=== PATIENT | male | born 1990 | race Caucasian/White ===

== ENCOUNTER 2016-08-24 08:18 | Emergency (ER) | payer OTHER ==
[~2016-08-24 08:18] MED LIST: LEXA1TAB PO; TRAZ50TA4 PO
[2016-08-24] MEDS ORDERED: BENT20TA PO (08:45)
== END 2016-08-24 09:15 | disposition home or self-care (01) ==
LOC: M ED 08:59
DX: K58.0 Irritable bowel syndrome with diarrhea (principal)

== ENCOUNTER → 2016-08-29 | Outpatient (CLI) | payer OTHER ==
[~2016-08-29] MED LIST changes: +BENT20TA PO
--- NOTE | 2016-08-29 13:03 | REP ---
Clinical: Pain . Technique: Internal rotation, external rotation, and Y view right shoulder . Findings: No acute fracture or dislocation. The acromioclavicular and glenohumeral joints are intact. No periarticular calcifications or degenerative changes are appreciated. Sub acromial space is normal. Surrounding soft tissues are unremarkable. Impression: Normal right shoulder radiographs. Signed by Angel Luis May MD 08/29/2016 12:56 P
== END ==
LOC: M RAD 12:33
PROVIDERS: ATTEND Physician Assistant
DX: M25.519 Pain in unspecified shoulder (principal)

== ENCOUNTER → 2017-05-24 | Outpatient (REF) | payer OTHER ==
[2017-05-24 15:26] LABS: HEPATITIS B SURFACE ANTIBODY POSITIVE (POSITIVE)
[2017-05-24 15:37] LABS: HEPATITIS B SURFACE ANTIGEN NEGATIVE (NEGATIVE)
[2017-05-24 16:05] LABS: HEPATITIS C VIRUS ABY INDEX 0.1 INDEX (<0.8)
[2017-05-24 16:05] LABS: HIV 1&2 SCREEN CENTAUR NEGATIVE (NEGATIVE)
== END ==
LOC: M LAB REF 13:53
DX: D72.820 Lymphocytosis (symptomatic) (principal)

== ENCOUNTER 2017-08-20 08:04 | Emergency (ER) | payer OTHER ==
[2017-08-20] MEDS: NS 1,000 ML IV (09:24)
[2017-08-20] MEDS: ONDANSETRON 4MG/2ML VIAL (J2405) IV ×2 (09:24→12:00)
[2017-08-20] MEDS: DICYCLOMINE INJ 20MG/2ML (J0500) IM (09:25)
[2017-08-20] MEDS: KETOROLAC 30 MG/ML VIAL (J1885) IV (09:25)
[2017-08-20] MEDS: GASTROGRAFIN SOLUTION 30ML PO ×2 (09:26→10:00)
[2017-08-20 09:34] LABS: BASO % 0.3 % (0.0-1.0); EOS # 0.1 10^3/uL (0.0-0.50); EOS % 1.1 % (0.0-3.0); HEMATOCRIT 45.9 % (42.0-52.0); HEMOGLOBIN 15.8 g/dl (13.5-17.5); IMMATURE GRANULOCYTE % 0.3 % (0-3.0); LYMPH # 1.5 10^3/uL (1.5-6.5); LYMPH % 11.7 % (24.0-44.0); MEAN CORPUSCULAR HEMOGLOBIN 29.3 pg (27.0-33.0); MEAN CORPUSCULAR HGB CONC 34.4 g/dl (32.0-36.5); MONO # 0.7 10^3/uL (0.0-0.8); MONO % 5.5 % (0.0-5.0); NEUTROPHILS # 10.3 10^3/uL (1.8-7.7); NEUTROPHILS % 81.1 % (36.0-66.0); PLATELET COUNT, AUTOMATED 290 10^3/uL (150-450); RED CELL DISTRIBUTION WIDTH 12.5 % (11.5-14.5); WHITE BLOOD COUNT 12.7 10^3/uL (4.0-10.0)
[2017-08-20 09:42] LABS: KETONE, URINE AUTO RFX NEGATIVE (NEGATIVE); LEUKOCYTE ESTERASE UR AUTO RFX NEGATIVE (NEGATIVE); MUCUS, URINE RFX SMALL (NEGATIVE); NITRITE, URINE AUTO RFX NEGATIVE (NEGATIVE); RBC, URINE AUTO RFX 0 /HPF (0-3); SPECIFIC GRAVITY UR AUTO RFX 1.021 (1.002-1.035); SQUAM EPITHELIAL CELL UR AURFX 0 /HPF (0-6); WBC, URINE AUTO RFX 0 /HPF (0-3)
[2017-08-20 09:50] LABS: ALBUMIN 4.2 GM/DL (3.2-5.2); ALBUMIN/GLOBULIN RATIO 1.24 (1.00-1.93); ALKALINE PHOSPHATASE 100 U/L (45-117); ALT/SGPT 50 U/L (12-78); AMYLASE 94 U/L (25-115); ANION GAP 5 MEQ/L (8-16); AST/SGOT 40 U/L (7-37); BILIRUBIN,DIRECT < 0.1 MG/DL (0.0-0.2); BILIRUBIN,TOTAL 0.3 MG/DL (0.2-1.0); BLOOD UREA NITROGEN 9 MG/DL (7-18); C REACTIVE PROTEIN QUANTITATIV 0.33 MG/DL (0.00-0.30); CALCIUM LEVEL 9.3 MG/DL (8.5-10.1); CARBON DIOXIDE LEVEL 28 MEQ/L (21-32); CHLORIDE LEVEL 109 MEQ/L (98-107); CREATININE FOR GFR 1.24 MG/DL (0.70-1.30); GLOMERULAR FILTRATION RATE > 60.0 (>60); GLUCOSE, FASTING 104 MG/DL (70-100); LIPASE 95 U/L (73-393); POTASSIUM SERUM 4.6 MEQ/L (3.5-5.1); SODIUM LEVEL 142 MEQ/L (136-145); TOTAL PROTEIN 7.6 GM/DL (6.4-8.2)
[2017-08-20 10:15] LABS: ERYTHROCYTE SEDIMENTATION RATE 3 mm/hr (0-15)
[2017-08-20] MEDS ORDERED: ISOVUE-370 76% 100ML VIAL (Q9967) As Ordered (10:21)
== END 2017-08-20 12:12 | disposition home or self-care (01) ==
LOC: M ED 08:04
DX: A08.11 Acute gastroenteropathy due to Norwalk agent (principal); K58.0 Irritable bowel syndrome with diarrhea; F41.9 Anxiety disorder, unspecified; F33.9 Major depressive disorder, recurrent, unspecified; F60.3 Borderline personality disorder; Z98.890 Other specified postprocedural states; Z79.899 Other long term (current) drug therapy
CPT/HCPCS: Q9963

== ENCOUNTER 2018-02-28 12:50 | Emergency (ER) | payer OTHER ==
[2018-02-28] MEDS: LIDOCAINE 1% MDV 20ML VIAL IM (14:09)
[2018-02-28] MEDS ORDERED: NEOSPORIN OINT 0.9 GM PKT (FLOOR STOCK) As Ordered (14:49)
== END 2018-02-28 14:57 | disposition home or self-care (01) ==
LOC: M ED 12:50
DX: S61.412A Laceration without foreign body of left hand, initial encounter (principal); W26.0XXA Contact with knife, initial encounter; Y92.090 Kitchen in other non-institutional residence as the place of occurrence of the external cause
CPT/HCPCS: 12001

== ENCOUNTER 2018-05-28 11:17 | Emergency (ER) | payer OTHER ==
[~2018-05-28] VITALS: Ht 160 cm; Wt 81.8 kg
[~2018-05-28 11:17] MED LIST changes: +BENT10CA PO; +TRAZ-160 PO; -TRAZ50TA4 PO; +ZOFR4TAB14 PO; +ZYRT10CA5 PO
[2018-05-28 11:24] VITALS: BP 143/97
[2018-05-28] MEDS ORDERED: AMOX/K (11:28)
[2018-05-28] MEDS ORDERED: IBUP-1022 PO (11:39)
[2018-05-28] MEDS ORDERED: BENZ200C70 PO (11:39)
[2018-05-28] MEDS ORDERED: ONDA4TAB6 PO (11:40)
[2018-05-28] MEDS ORDERED: ANUS25SU PR (20:12)
== END 2018-05-28 11:52 | disposition home or self-care (01) ==
LOC: M ED 11:17
DX: J06.9 Acute upper respiratory infection, unspecified (principal); S29.011A Strain of muscle and tendon of front wall of thorax, initial encounter; X58.XXXA Exposure to other specified factors, initial encounter; Y92.89 Other specified places as the place of occurrence of the external cause; Z87.891 Personal history of nicotine dependence

== ENCOUNTER 2018-05-28 16:18 | Emergency (ER) | payer OTHER ==
[~2018-05-28] VITALS: Ht 160 cm; Wt 81.8 kg
[~2018-05-28 16:18] MED LIST changes: +AMOX/K; +BENZ200C70 PO; +IBUP-1022 PO; +ONDA4TAB6 PO
[2018-05-28] MEDS ORDERED: ANUS25SU PR (20:12)
[2018-05-28 20:19] VITALS: BP 133/93
== END 2018-05-28 20:34 | disposition home or self-care (01) ==
LOC: M ED 16:18
DX: K64.8 Other hemorrhoids (principal); F33.9 Major depressive disorder, recurrent, unspecified; F41.9 Anxiety disorder, unspecified; F60.3 Borderline personality disorder; Z87.19 Personal history of other diseases of the digestive system

== ENCOUNTER → 2018-08-12 | Outpatient (CLI) | payer OTHER ==
[~2018-08-12] MED LIST changes: +ANUS25SU PR
--- NOTE | 2018-08-13 03:20 | REP ---
Clinical: Trauma. Decreased range of motion. Technique: AP, lateral, bilateral oblique views of the left knee. Findings: The osseous structures and joint spaces are intact and normal. There is no evidence for acute fracture or dislocation. No joint effusion is appreciated. Surrounding soft tissues are unremarkable. No subcutaneous emphysema or radiodense foreign body. Impression: No acute fracture or dislocation. Electronically Signed by Angel Luis May MD 08/13/2018 03:12 A
== END ==
LOC: M RAD 13:02
PROVIDERS: ATTEND Physician Assistant Medical
DX: M25.562 Pain in left knee (principal)

== ENCOUNTER 2019-05-05 12:39 | Emergency (ER) | payer OTHER ==
[~2019-05-05] VITALS: Ht 160 cm; Wt 84.0 kg
[~2019-05-05 12:39] MED LIST changes: -TRAZ-160 PO; +TRAZ-252 PO
[2019-05-05] MEDS ORDERED: PROP60CA (12:47)
[2019-05-05 13:14] LABS: BASO # 0.1 10^3/uL (0.0-0.2); BASO % 0.7 % (0.0-1.0); EOS # 0.2 10^3/uL (0.0-0.5); EOS % 2.4 % (0.0-3.0); HEMATOCRIT 47.1 % (42.0-52.0); HEMOGLOBIN 15.7 g/dl (13.5-17.5); LYMPH # 2.7 10^3/uL (1.5-5.0); LYMPH % 38.4 % (24.0-44.0); MEAN CORPUSCULAR HEMOGLOBIN 29.2 pg (27.0-33.0); MEAN CORPUSCULAR HGB CONC 33.3 g/dl (32.0-36.5); MEAN CORPUSCULAR VOLUME 87.5 fl (80.0-96.0); MONO # 0.5 10^3/uL (0.0-0.8); MONO % 6.3 % (0.0-5.0); NEUTROPHILS # 3.7 10^3/uL (1.5-8.5); NEUTROPHILS % 51.8 % (36.0-66.0); PLATELET COUNT, AUTOMATED 314 10^3/uL (150-450); RED BLOOD COUNT 5.38 10^6/uL (4.30-6.10); WHITE BLOOD COUNT 7.1 10^3/uL (4.0-10.0)
[2019-05-05 13:41] LABS: ALBUMIN 4.4 GM/DL (3.2-5.2); ALT/SGPT 39 U/L (12-78); BILIRUBIN,DIRECT 0.1 MG/DL (0.0-0.2); BILIRUBIN,TOTAL 0.4 MG/DL (0.2-1.0); BLOOD UREA NITROGEN 12 MG/DL (7-18); CALCIUM LEVEL 11.2 MG/DL (8.5-10.1); CARBON DIOXIDE LEVEL 29 MEQ/L (21-32); CHLORIDE LEVEL 106 MEQ/L (98-107); CREATININE FOR GFR 1.26 MG/DL (0.70-1.30); GLOMERULAR FILTRATION RATE > 60.0 (>60); GLUCOSE, FASTING 88 MG/DL (70-100); LIPASE 108 U/L (73-393); POTASSIUM SERUM 5.1 MEQ/L (3.5-5.1); SODIUM LEVEL 139 MEQ/L (136-145)
[2019-05-05 16:10] VITALS: BP 135/94
--- NOTE | 2019-05-05 16:45 | REP ---
KUB ABDOMEN AND PELVIS: KUB film of the abdomen and pelvis are performed. Bowel gas pattern is normal. There is no evidence of dilated small bowel with no evidence of small bowel obstruction. No abnormal calcifications are seen. The visualized osseous structures appear unremarkable. IMPRESSION: Negative KUB. Electronically Signed by Wilver Urbina MD 05/06/2019 10:26 P
== END 2019-05-05 16:18 | disposition home or self-care (01) ==
LOC: M ED 12:39
DX: R19.7 Diarrhea, unspecified (principal); R79.89 Other specified abnormal findings of blood chemistry; K58.0 Irritable bowel syndrome with diarrhea; F60.9 Personality disorder, unspecified; Z87.891 Personal history of nicotine dependence; Z79.899 Other long term (current) drug therapy

== ENCOUNTER 2019-06-02 17:47 | Emergency (ER) | payer OTHER ==
[~2019-06-02] VITALS: Ht 160 cm; Wt 97.5 kg
[~2019-06-02 17:47] MED LIST changes: +PROP60CA
[2019-06-02] MEDS ORDERED: CYCL10TA (17:54)
[2019-06-02] MEDS ORDERED: PRED20TA (17:54)
[2019-06-02 20:55] LABS: INFLUENZA A AMPLIFICATION NEGATIVE (NEGATIVE); INFLUENZA B AMPLIFICATION NEGATIVE (NEGATIVE)
--- NOTE | 2019-06-02 21:36 | REP ---
CHEST, TWO VIEWS: Two views of the chest were performed. There appear to be increased perihilar interstitial markings bilaterally suggesting mild perihilar interstitial infiltrates. No consolidation is seen. Heart is normal in size and the mediastinal silhouette is unremarkable. IMPRESSION: Suspect mild perihilar interstitial infiltrates bilaterally. Electronically Signed by Wilver Urbina MD 06/03/2019 03:10 P
[2019-06-02 22:06] VITALS: BP 127/86
== END 2019-06-02 22:07 | disposition home or self-care (01) ==
LOC: M ED 17:47
DX: J06.9 Acute upper respiratory infection, unspecified (principal); B34.9 Viral infection, unspecified; K58.0 Irritable bowel syndrome with diarrhea; F41.9 Anxiety disorder, unspecified

== ENCOUNTER 2019-11-27 21:14 | Emergency (ER) | payer OTHER ==
[~2019-11-27] VITALS: Ht 160 cm; Wt 86.6 kg
[~2019-11-27 21:14] MED LIST changes: +CYCL-707; +PRED20TA
[2019-11-27] MEDS ORDERED: KETOROLAC 30 MG/ML 1ML VIAL IV ONE (23:45)
[2019-11-27] MEDS ORDERED: NS 1,000 ML IV ONE (23:45)
--- NOTE | 2019-11-28 00:05 | REPVR ---
PROCEDURE INFORMATION: Exam: CT Abdomen And Pelvis Without Contrast Exam date and time: 11/27/2019 11:44 PM Age: 29 years old Clinical indication: Abdominal pain; Flank; Left; Additional info: L colic TECHNIQUE: Imaging protocol: Computed tomography of the abdomen and pelvis without contrast. Radiation optimization: All CT scans at this facility use at least one of these dose optimization techniques: automated exposure control; mA and/or kV adjustment per patient size (includes targeted exams where dose is matched to clinical indication); or iterative reconstruction. COMPARISON: CT ABD/PEL W/IV ORAL CONTRAS 2017-08-20 10:42 FINDINGS: Liver: Normal. No mass. Gallbladder and bile ducts: Normal. No calcified stones. No ductal dilation. Pancreas: Normal. No ductal dilation. Spleen: Normal. No splenomegaly. Adrenals: Normal. No mass. Kidneys and ureters: Normal. No hydronephrosis. Stomach and bowel: Unremarkable. No obstruction. No mucosal thickening. Appendix: No evidence of appendicitis. Intraperitoneal space: Unremarkable. No free air. No significant fluid collection. Vasculature: Unremarkable. No abdominal aortic aneurysm. Lymph nodes: Unremarkable. No enlarged lymph nodes. Bladder: Unremarkable as visualized. Reproductive: Unremarkable as visualized. Bones/joints: Unremarkable. No acute fracture. Soft tissues: Unremarkable. IMPRESSION: No acute findings. Electronically signed by: Richard Hull On 11/28/2019 00:05:33 AM
[2019-11-28 00:48] LABS: BASO # 0.1 10^3/uL (0.0-0.2); BASO % 0.8 % (0.0-1.0); EOS # 0.3 10^3/uL (0.0-0.5); EOS % 3.3 % (0.0-3.0); HEMATOCRIT 43.8 % (42.0-52.0); HEMOGLOBIN 14.7 g/dl (13.5-17.5); LYMPH # 4.1 10^3/uL (1.5-5.0); LYMPH % 45.4 % (24.0-44.0); MEAN CORPUSCULAR HGB CONC 33.6 g/dl (32.0-36.5); MEAN CORPUSCULAR VOLUME 86.4 fl (80.0-96.0); MONO # 0.8 10^3/uL (0.0-0.8); MONO % 8.3 % (0.0-5.0); NEUTROPHILS # 3.8 10^3/uL (1.5-8.5); PLATELET COUNT, AUTOMATED 316 10^3/uL (150-450); RED BLOOD COUNT 5.07 10^6/uL (4.30-6.10); WHITE BLOOD COUNT 9.1 10^3/uL (4.0-10.0)
[2019-11-28 01:17] LABS: ALBUMIN 4.2 GM/DL (3.2-5.2); ALT/SGPT 38 U/L (12-78); BILIRUBIN,DIRECT 0.1 MG/DL (0.0-0.2); BILIRUBIN,TOTAL 0.3 MG/DL (0.2-1.0); BLOOD UREA NITROGEN 9 MG/DL (7-18); CALCIUM LEVEL 9.2 MG/DL (8.5-10.1); CARBON DIOXIDE LEVEL 28 MEQ/L (21-32); CHLORIDE LEVEL 108 MEQ/L (98-107); CREATININE FOR GFR 1.21 MG/DL (0.70-1.30); GLOMERULAR FILTRATION RATE > 60.0 (>60); GLUCOSE, FASTING 123 MG/DL (70-100); LIPASE 98 U/L (73-393); POTASSIUM SERUM 3.9 MEQ/L (3.5-5.1); SODIUM LEVEL 141 MEQ/L (136-145); TOTAL PROTEIN 7.5 GM/DL (6.4-8.2)
[2019-11-28 02:51] VITALS: BP 128/78
== END 2019-11-28 02:52 | disposition home or self-care (01) ==
LOC: M ED 21:14
DX: R10.9 Unspecified abdominal pain (principal); F17.210 Nicotine dependence, cigarettes, uncomplicated
CPT/HCPCS: 74176; 80048; 80076; 81001; 83690; 85025; 96361; 96374; 99284; J1885

== ENCOUNTER → 2020-05-31 | Outpatient (REF) | payer OTHER ==
[2020-05-31 18:47] LABS: APPEARANCE, URINE CLEAR (CLEAR); BACTERIA, URINE AUTO NEGATIVE (NEGATIVE); BILIRUBIN, URINE AUTO NEGATIVE (NEGATIVE); BLOOD, URINE BLOOD NEGATIVE (NEGATIVE); COLOR, URINE YELLOW (YELLOW); GLUCOSE, URINE (UA) AUTO NEGATIVE (NEGATIVE); KETONE, URINE AUTO NEGATIVE (NEGATIVE); LEUKOCYTE ESTERASE, URINE AUTO NEGATIVE (NEGATIVE); MUCUS, URINE SMALL (NEGATIVE); NITRITE, URINE AUTO NEGATIVE (NEGATIVE); PROTEIN, URINE AUTO NEGATIVE (NEGATIVE); RBC, URINE AUTO 0 /HPF (0-3); SPECIFIC GRAVITY URINE AUTO 1.015 (1.002-1.035); SQUAMOUS EPITHELIAL CELL UR AU 0 /HPF (0-6); UROBILINOGEN, URINE AUTO 0.2 mg/dL (0.0-2.0); WBC, URINE AUTO 0 /HPF (0-3)
== END ==
LOC: M SMT 17:11
PROVIDERS: ATTEND Nurse Practitioner Family
DX: R10.30 Lower abdominal pain, unspecified (principal)
CPT/HCPCS: 81001; 87086; G0463

== ENCOUNTER → 2020-08-10 | Outpatient (CLI) | payer OTHER ==
--- NOTE | 2020-08-11 09:19 | REP ---
INDICATION: GROIN PAIN COMPARISON: 11/27/2019 TECHNIQUE: Axial noncontrast images from the lung bases to the pubic symphysis with coronal and sagittal reformations. This CT examination was performed using the following dose reduction techniques: Automated exposure control, adjustment of mA and/or kv according to the patient's size, and use of iterative reconstruction technique. FINDINGS: Lung bases are clear. Visualized heart and pericardium normal. Liver, spleen, pancreas, gallbladder, bilateral adrenal glands and kidneys are normal. The enteric system is unremarkable and without obstruction or acute inflammatory process. Normal terminal ileum and appendix identified in the right lower quadrant. Pelvis demonstrates normal bladder and age-appropriate prostate/seminal vesicles. No ascites. No free air. No adenopathy. No focal inflammatory stranding. Abdominal aorta without aneurysm. Musculoskeletal structures are intact and without acute osseous abnormality. IMPRESSION: No acute abdominopelvic pathology appreciated. <Electronically signed by Angel Luis May > 08/11/20 0915
== END ==
LOC: M RAD 17:38
PROVIDERS: ATTEND Nurse Practitioner Family
DX: R10.30 Lower abdominal pain, unspecified (principal)

== ENCOUNTER 2020-11-03 21:13 | Emergency (ER) | payer OTHER ==
[~2020-11-03] VITALS: Ht 160 cm; Wt 87.9 kg
[2020-11-03 21:14] VITALS: BP 141/104
[2020-11-03] MEDS ORDERED: ATOR1TAB19 PO (21:18)
[2020-11-03] MEDS ORDERED: CYCL-707 PO (21:18)
== END 2020-11-04 00:06 | disposition left against medical advice (07) ==
LOC: M ED 21:13
DX: Z53.21 Procedure and treatment not carried out due to patient leaving prior to being seen by health care provider (principal)

== ENCOUNTER → 2021-05-01 | Outpatient (CLI) | payer OTHER ==
[~2021-05-01] MED LIST changes: +ATOR1TAB19 PO; +CYCL-707 PO
== END ==
LOC: M RAD 10:49
PROVIDERS: ATTEND Family Medicine
DX: J45.909 Unspecified asthma, uncomplicated (principal)

== ENCOUNTER 2021-06-18 16:43 | Emergency (ER) | payer OTHER ==
[~2021-06-18] VITALS: Ht 160 cm; Wt 83.5 kg
[2021-06-18 17:10] LABS: HEMATOCRIT 44.5 % (42.0-52.0); HEMOGLOBIN 14.8 g/dl (13.5-17.5); MEAN CORPUSCULAR HEMOGLOBIN 28.8 pg (27.0-33.0); MEAN CORPUSCULAR HGB CONC 33.3 g/dl (32.0-36.5); MEAN CORPUSCULAR VOLUME 86.7 fl (80.0-96.0); PLATELET COUNT, AUTOMATED 321 10^3/uL (150-450); RED BLOOD COUNT 5.13 10^6/uL (4.30-6.10); WHITE BLOOD COUNT 7.3 10^3/uL (4.0-10.0)
[2021-06-18 17:38] LABS: AMPHETAMINES LEVEL URINE NEGATIVE (NEGATIVE); BARBITURATES URINE NEGATIVE (NEGATIVE); BENZODIAZEPINES URINE NEGATIVE (NEGATIVE); CANNABINOIDS URINE NEGATIVE (NEGATIVE); COCAINE METABOLITE URINE NEGATIVE (NEGATIVE); METHADONE URINE NEGATIVE (NEGATIVE); OPIATES URINE NEGATIVE (NEGATIVE); PHENCYCLIDINE URINE NEGATIVE (NEGATIVE)
[2021-06-18 17:49] LABS: ALBUMIN 4.1 GM/DL (3.2-5.2); ALT/SGPT 29 U/L (12-78); BILIRUBIN,DIRECT 0.1 MG/DL (0.0-0.2); BILIRUBIN,TOTAL 0.4 MG/DL (0.2-1.0); BLOOD UREA NITROGEN 7 MG/DL (7-18); CALCIUM LEVEL 8.7 MG/DL (8.5-10.1); CARBON DIOXIDE LEVEL 28 MEQ/L (21-32); CHLORIDE LEVEL 111 MEQ/L (98-107); GLOMERULAR FILTRATION RATE > 60.0 (>60); GLUCOSE, FASTING 133 MG/DL (70-100); POTASSIUM SERUM 3.8 MEQ/L (3.5-5.1); SALICYLATE LEVEL < 1.7 MG/DL (5.0-30.0); SODIUM LEVEL 144 MEQ/L (136-145); THYROID STIMULATING HORMONE 0.805 uIU/ML (0.358-3.740); TOTAL PROTEIN 7.3 GM/DL (6.4-8.2)
[2021-06-18 17:50] LABS: ACETAMINOPHEN LEVEL < 2.0 UG/ML (10.0-30.0); ETHYL ALCOHOL (ETHANOL) < 0.003 % (0.000-0.010)
[2021-06-18] MEDS ORDERED: HOME MED LIST COMPLETE! XX SCH (17:55)
[2021-06-18 18:02] LABS: RSV AMPLIFICATION NEGATIVE (NEGATIVE)
[2021-06-18 20:56] VITALS: BP 128/88
== END 2021-06-18 20:58 | disposition home or self-care (01) ==
LOC: M ED 16:43
DX: F32.A Depression, unspecified (principal); R45.851 Suicidal ideations; I10 Essential (primary) hypertension; M54.50 Low back pain, unspecified; F41.8 Other specified anxiety disorders; K58.9 Irritable bowel syndrome, unspecified

== ENCOUNTER 2021-12-18 10:15 | Emergency (ER) | payer OTHER ==
[~2021-12-18] VITALS: Ht 162.6 cm; Wt 85.9 kg
[2021-12-18 10:16] VITALS: BP 147/108
[2021-12-18 12:52] LABS: BASO # 0.1 10^3/uL (0.0-0.2); BASO % 0.9 % (0.0-1.0); EOS # 0.4 10^3/uL (0.0-0.5); EOS % 4.7 % (0.0-3.0); LYMPH # 2.7 10^3/uL (1.5-5.0); LYMPH % 35.3 % (24.0-44.0); MEAN CORPUSCULAR HEMOGLOBIN 28.4 pg (27.0-33.0); MEAN CORPUSCULAR HGB CONC 32.7 g/dl (32.0-36.5); MONO # 0.7 10^3/uL (0.0-0.8); MONO % 8.6 % (2.0-8.0); NEUTROPHILS # 3.8 10^3/uL (1.5-8.5); NEUTROPHILS % 50.1 % (36.0-66.0); PLATELET COUNT, AUTOMATED 294 10^3/uL (150-450); RED BLOOD COUNT 5.63 10^6/uL (4.30-6.10); WHITE BLOOD COUNT 7.6 10^3/uL (4.0-10.0)
[2021-12-18 15:08] LABS: ALBUMIN 4.4 GM/DL (3.2-5.2); ALT/SGPT 43 U/L (12-78); BILIRUBIN,DIRECT 0.2 MG/DL (0.0-0.2); BILIRUBIN,TOTAL 0.4 MG/DL (0.2-1.0); BLOOD UREA NITROGEN 12 MG/DL (7-18); CALCIUM LEVEL 9.8 MG/DL (8.5-10.1); CARBON DIOXIDE LEVEL 30 MEQ/L (21-32); CHLORIDE LEVEL 103 MEQ/L (98-107); CREATININE FOR GFR 1.21 MG/DL (0.70-1.30); GLOMERULAR FILTRATION RATE > 60.0 (>60); GLUCOSE, FASTING 84 MG/DL (70-100); LIPASE 87 U/L (73-393); POTASSIUM SERUM 4.3 MEQ/L (3.5-5.1); SODIUM LEVEL 136 MEQ/L (136-145); TOTAL PROTEIN 7.8 GM/DL (6.4-8.2)
== END 2021-12-18 17:50 | disposition left against medical advice (07) ==
LOC: M ED 10:15
DX: Z53.21 Procedure and treatment not carried out due to patient leaving prior to being seen by health care provider (principal)

== ENCOUNTER → 2022-01-16 | Outpatient (REF) | payer OTHER ==
[2022-01-16 17:42] LABS: FREE T4 1.03 NG/DL (0.76-1.46); THYROID STIMULATING HORMONE 1.2 uIU/ML (0.358-3.740)
== END ==
LOC: M LAB REF 16:52
PROVIDERS: ATTEND Nurse Practitioner Family
DX: E29.1 Testicular hypofunction (principal); R79.89 Other specified abnormal findings of blood chemistry

== ENCOUNTER 2022-02-06 21:04 | Emergency (ER) | payer OTHER ==
[~2022-02-06] VITALS: Ht 160 cm; Wt 83.2 kg
[2022-02-07] MEDS ORDERED: KETOROLAC 60MG 2ML VIAL IM ONE (00:15)
[2022-02-07 01:09] VITALS: BP 126/80
== END 2022-02-07 01:10 | disposition home or self-care (01) ==
LOC: M ED 21:04
DX: S82.112A Displaced fracture of left tibial spine, initial encounter for closed fracture (principal); M25.462 Effusion, left knee; I10 Essential (primary) hypertension; K58.9 Irritable bowel syndrome, unspecified; F60.3 Borderline personality disorder; F41.9 Anxiety disorder, unspecified; F32.A Depression, unspecified; Y92.009 Unspecified place in unspecified non-institutional (private) residence as the place of occurrence of the external cause; Y93.83 Activity, rough housing and horseplay; Y99.9 Unspecified external cause status

== ENCOUNTER → 2022-02-09 | Outpatient (REF) | payer OTHER ==
[2022-02-09 18:31] LABS: APPEARANCE, URINE MANUAL CLEAR (CLEAR); COLOR, URINE MANUAL YELLOW (YELLOW)
[2022-02-09 18:32] LABS: BILIRUBIN, URINE MANUAL NEGATIVE (NEGATIVE); BLOOD URINE MANUAL TRACE (NEGATIVE); GLUCOSE, URINE (UA) MANUAL NEGATIVE (NEGATIVE); KETONE, URINE MANUAL NEGATIVE (NEGATIVE); LEUKOCYTE ESTERASE, URINE MAN NEGATIVE (NEGATIVE); NITRITE, URINE MANUAL NEGATIVE (NEGATIVE); PROTEIN, URINE MANUAL NEGATIVE (NEGATIVE); UROBILINOGEN, URINE MANUAL NORMAL (NORMAL)
[2022-02-09 18:56] LABS: BACTERIA, URINE NONE SEEN; HYALINE CAST, URINE NONE SEEN /lpf (0-1); MUCUS, URINE SMALL AMOUNT (NEGATIVE); RBC, URINE 0-1 /hpf (0-3); SQUAMOUS EPITHELIAL CELL URINE SMALL AMOUNT /hpf (SMALL AMT); WBC, URINE 0-1 /hpf (0-3)
[2022-02-09 19:16] LABS: GC DNA AMPLIFICATION NEGATIVE (NEGATIVE)
[2022-02-09 19:20] LABS: GC DNA AMPLIFICATION NEGATIVE (NEGATIVE)
== END ==
LOC: M LAB REF 16:36
PROVIDERS: ATTEND Physician Assistant
DX: Z11.3 Encounter for screening for infections with a predominantly sexual mode of transmission (principal)

== ENCOUNTER → 2022-02-13 | Outpatient (CLI) | payer OTHER | LOC: M SOG 09:11 | PROVIDERS: ATTEND Orthopaedic Surgery | DX: M25.562 Pain in left knee (principal) ==

== ENCOUNTER → 2022-02-22 | Outpatient (CLI) | payer OTHER | LOC: M PLAIMG 07:28 | PROVIDERS: ATTEND Orthopaedic Surgery | DX: M25.562 Pain in left knee (principal); S82.102A Unspecified fracture of upper end of left tibia, initial encounter for closed fracture ==

== ENCOUNTER 2022-03-07 09:38 | Emergency (ER) | payer OTHER ==
[~2022-03-07] VITALS: Ht 162.6 cm; Wt 83.1 kg
[2022-03-07 09:39] VITALS: BP 146/94
[2022-03-07] MEDS ORDERED: CEFD300C41 (09:50)
[2022-03-07 10:50] LABS: RSV AMPLIFICATION NEGATIVE (NEGATIVE)
== END 2022-03-07 13:18 | disposition left against medical advice (07) ==
LOC: M ED 09:38
DX: Z53.21 Procedure and treatment not carried out due to patient leaving prior to being seen by health care provider (principal)

== ENCOUNTER → 2022-06-13 | Outpatient (CLI) | payer OTHER ==
[~2022-06-13] MED LIST changes: +CEFD300C41
== END ==
LOC: M SOG 08:11
PROVIDERS: ATTEND Orthopaedic Surgery
DX: M25.562 Pain in left knee (principal)

== ENCOUNTER → 2022-06-27 | Outpatient (CLI) | payer OTHER | LOC: M SOG 08:17 | PROVIDERS: ATTEND Orthopaedic Surgery | DX: S82.122A Displaced fracture of lateral condyle of left tibia, initial encounter for closed fracture (principal); X58.XXXA Exposure to other specified factors, initial encounter ==

== ENCOUNTER 2023-06-17 08:47 | Day surgery (SDC) | payer OTHER ==
[~2023-06-17] VITALS: Ht 160 cm; Wt 93.9 kg
[~2023-06-17 08:47] MED LIST changes: +CEFD1CAP9; -CEFD300C41; +CETI-24 PO; +DESC1TAB PO; +DULO1CAP4 PO; +HYDR-3490 PO; +HYDR12CA PO; +LOSA25TA13 PO; +LOSA50TA28 PO
[2023-06-17] MEDS ORDERED: fentaNYL 100 MCG/2 ML INJECTION As Ordered ONE (09:28)
[2023-06-17] MEDS ORDERED: MIDAZOLAM INJ 2MG/2ML VIAL As Ordered ONE (09:28)
[2023-06-17] MEDS ORDERED: ONDANSETRON 4MG 2ML VIAL As Ordered ONE (09:28)
[2023-06-17] MEDS ORDERED: propofoL 200 MG/20 ML VIAL As Ordered ONE (09:29)
[2023-06-17] MEDS ORDERED: LIDOCAINE 2% 100MG/5ML SDV (FOR ANES.) As Ordered ONE (09:29)
[2023-06-17] MEDS ORDERED: ACETAMINOPHEN 1000MG 100ML IV BAG As Ordered ONE (09:34)
[2023-06-17] MEDS: LR 1,000 ML IV SCH (09:43)
[2023-06-17] MEDS: ceFAZolin SOD 2 GM in IV 1 EA IV ONE (10:47)
[2023-06-17] MEDS ORDERED: LABETALOL 100MG/20ML VIAL As Ordered ONE (10:54)
[2023-06-17] MEDS: BACITRACIN OINTMENT 30GM TUBE As Ordered ONE (11:21)
[2023-06-17] MEDS ORDERED: ONDANSETRON 4MG 2ML VIAL IV PRN (11:30)
[2023-06-17] MEDS ORDERED: HYDROMORPHONE HCL 0.5 MG/ 0.5 ML SYRINGE IV PRN (11:30)
[2023-06-17] MEDS ORDERED: fentaNYL 100 MCG/2 ML INJECTION IV PRN (11:30)
[2023-06-17] MEDS ORDERED: oxyCODONE 5MG TAB PO PRN (11:30)
[2023-06-17] MEDS ORDERED: LR 1,000 ML IV SCH (11:30)
[2023-06-17 13:31] VITALS: BP 138/85; TEMP 97.1; O2SAT 98
== END 2023-06-17 13:36 | disposition home or self-care (01) ==
LOC: M SDC 08:47
PROVIDERS: ATTEND Orthopaedic Surgery Hand Surgery
DX: G56.02 Carpal tunnel syndrome, left upper limb (principal); G56.21 Lesion of ulnar nerve, right upper limb; I10 Essential (primary) hypertension; K58.9 Irritable bowel syndrome, unspecified; Z79.899 Other long term (current) drug therapy; Z88.8 Allergy status to other drugs, medicaments and biological substances
CPT/HCPCS: 64719; 64721; J0131; J0665; J0690; J1100; J1920; J2250; J2405; J3010

== ENCOUNTER → 2023-08-14 | Outpatient (CLI) | payer OTHER ==
[~2023-08-14] MED LIST changes: +METHACHOLINE KIT (6 VIAL.NEB PREMIX) INH ONE; +ONDA-282 PO; -ONDA4TAB6 PO
== END ==
LOC: M CARPUL 14:31
PROVIDERS: ATTEND Family Medicine
DX: R06.2 Wheezing (principal)

== ENCOUNTER → 2023-09-30 | Outpatient (CLI) | payer OTHER ==
[~2023-09-30] MED LIST changes: -METHACHOLINE KIT (6 VIAL.NEB PREMIX) INH ONE
== END ==
LOC: M CARPUL 13:27
PROVIDERS: ATTEND Student in an Organized Health Care Education/Training Program
DX: R06.02 Shortness of breath (principal)

== ENCOUNTER → 2024-03-30 | Outpatient (CLI) | payer OTHER | LOC: M RAD 13:21 | PROVIDERS: ATTEND Nurse Practitioner Family | DX: K40.90 Unilateral inguinal hernia, without obstruction or gangrene, not specified as recurrent (principal) ==

== ENCOUNTER → 2024-06-22 | Outpatient (CLI) | payer OTHER | LOC: M RAD 14:26 | PROVIDERS: ATTEND Nurse Practitioner Family | DX: N50.819 Testicular pain, unspecified (principal) ==

== ENCOUNTER → 2025-03-19 | Outpatient (CLI) | payer OTHER ==
[~2025-03-19] MED LIST changes: +HYDR12.510 PO; -HYDR12CA PO; -IBUP-1022 PO; +IBUP600T42 PO
== END ==
LOC: M SOG 07:36
PROVIDERS: ATTEND Orthopaedic Surgery Hand Surgery
DX: M25.531 Pain in right wrist (principal)